=== PATIENT | male | born 1930 | race Caucasian/White ===

== ENCOUNTER 2016-06-20 01:03 | Emergency (ER) | payer MEDICARE, OTHER ==
[2016-06-20] MEDS ORDERED: MAGNESIUM CITRATE 300 ML BOT ONE (01:29)
[2016-06-20] MEDS ORDERED: ENEMA--adult 1 EACH ONE ×2 (01:29→02:21)
== END 2016-06-20 02:54 | disposition home or self-care (01) ==
LOC: ED 01:03
DX: K59.00 Constipation, unspecified (principal); I10 Essential (primary) hypertension
CPT/HCPCS: 99283 ×2; A9270 ×2